=== PATIENT | male | born 1945 | race Caucasian/White ===

== ENCOUNTER 2020-12-03 19:26 | Emergency (ER) | payer MEDICARE, OTHER ==
[~2020-12-03] VITALS: Ht 177.8 cm; Wt 90.7 kg
--- NOTE | 2020-12-03 19:40 | NUR ---
BIB FAMILY FROM HOME WITH C/C OF NOSE BLEEDING WITH LACERATION DUE TO FALL, PAIN AT 5/10, DRESSING IS INTACT WITH MINIMAL BLEEDING NOTED, FAMILY AT BED SIDE, BREATHING EVEN AND UNLABORED, HOOK TO MONITOR AND SPOX WILL CONT TO MONITOR
--- NOTE | 2020-12-03 20:00 | NUR ---
DR BENITES AT BEDSIDE WITH ORDERS MADE AND CARRIED OUT
[2020-12-03] MEDS ORDERED: LIDOCAINE 1%-EPI 1:100,000 20 ML VIAL ONE (20:20)
--- NOTE | 2020-12-03 20:35 | NUR ---
DRESSING CHANGE DONE BLEEDING IS NOTED, MD MADE AWARE, MD WILL DO THE SUTURING
[2020-12-03] MEDS ORDERED: ONDANSETRON 4 MG TAB.RAPDIS ONE (20:44)
[2020-12-03] MEDS ORDERED: HYDROCODONE/APAP 5/325MG TABLET ONE (20:44)
[2020-12-03] MEDS ORDERED: HYDROCODONE/APAP 5/325MG TABLET PO ONE (21:00)
[2020-12-03] MEDS ORDERED: AMOX/CLAVULANATE 875 MG TABLET PO ONE (21:00)
[2020-12-03] MEDS ORDERED: ONDANSETRON 4 MG TAB.RAPDIS SL ONE (21:00)
--- NOTE | 2020-12-03 21:00 | NUR ---
AT BEDSIDE SUTURING THE WOUND
[2020-12-03] MEDS ORDERED: AMOX-430 PO (21:10)
[2020-12-03] MEDS ORDERED: ACET325C7 PO (21:11)
[2020-12-03] MEDS ORDERED: AMOX/CLAVULANATE 875 MG TABLET ONE (21:15)
--- NOTE | 2020-12-03 21:50 | NUR ---
Patient discharged to home in stable condition. Written and verbal after care instructions given. Patient family verbalizes understanding of instruction.Pt Dc via WC accompanied by family members AA/O x4 and No SOB noted
[2020-12-03 21:58] VITALS: BP 145/85
== END 2020-12-03 21:59 | disposition home or self-care (01) ==
LOC: ER 19:26
DX: S01.21XA Laceration without foreign body of nose, initial encounter (principal); E78.5 Hyperlipidemia, unspecified; G20 Parkinson's disease; W18.39XA Other fall on same level, initial encounter; Y93.89 Activity, other specified; Y92.89 Other specified places as the place of occurrence of the external cause; Y99.8 Other external cause status
CPT/HCPCS: 12011; 70450; 70486; 99285; A6403; J3490; Q0162

== ENCOUNTER 2020-12-09 13:20 | Emergency (ER) | payer MEDICARE, OTHER ==
[~2020-12-09] VITALS: Ht 180.3 cm; Wt 85.7 kg
[~2020-12-09 13:20] MED LIST: ACET325C7 PO; AMOX-430 PO
[2020-12-09 13:27] VITALS: BP 121/73
== END 2020-12-09 14:14 | disposition home or self-care (01) ==
LOC: ER 13:20
DX: S01.21XD Laceration without foreign body of nose, subsequent encounter (principal); X58.XXXD Exposure to other specified factors, subsequent encounter